=== PATIENT | male | born 1960 | race Caucasian/White ===

== ENCOUNTER 2017-01-20 17:35 | Emergency (ER) | payer SELFPAY ==
[~2017-01-20] VITALS: Ht 175.3 cm; Wt 73.0 kg
[2017-01-20 17:38] VITALS: BP 119/78; PULSE 98; RESP 20; TEMP 98.1; O2SAT 100
[2017-01-20 18:04] VITALS: BP 124/70; PULSE 89; RESP 16; O2SAT 98
[2017-01-20] MEDS ORDERED: SODIUM CHLOR 0.9% 1000 ML INJ 1,000 ML IV SCH (18:04)
[2017-01-20] MEDS ORDERED: MORPHINE SULFATE 8 MG/ML INJ ONE (18:14)
[2017-01-20] MEDS ORDERED: FAMOTIDINE 20 MG/2 ML VIAL IV PUSH ONE (18:15)
[2017-01-20] MEDS ORDERED: PANTOPRAZOLE SODIUM 40 MG VIAL IVP ONE (18:15)
[2017-01-20] MEDS ORDERED: MORPHINE SULFATE 4 MG/ML INJ IV PUSH ONE (18:15)
[2017-01-20] MEDS ORDERED: LIDOCAINE VISCOUS 2% SOLN 15 ML UDC PO ONE (18:15)
[2017-01-20] MEDS ORDERED: ONDANSETRON HCL 4 MG/2 ML VIAL IVP ONE (18:15)
[2017-01-20] MEDS ORDERED: ALUMINUM/MAGNESIUM/SIMETH 30 ML CUP PO ONE (18:15)
[2017-01-20 18:43] LABS: AUTOMATED NEUTROPHIL # 11.5 TH/MM3 (1.8-7.7); BASOPHIL % 0.2 % (0.0-2.0); EOSINOPHIL % 0.3 % (0.0-4.0); HEMATOCRIT 44.1 % (39.0-51.0); LYMPH % 4.2 % (9.0-44.0); LYMPHOCYTE # 0.5 TH/MM3 (1.0-4.8); MEAN CELL VOLUME 91.1 FL (80.0-100.0); MEAN CORPUSCULAR HEMOGLOBIN 32.2 PG (27.0-34.0); MEAN CORPUSCULAR HGB CONC 35.4 % (32.0-36.0); MONO % 6.7 % (0.0-8.0); NEUT % 88.6 % (16.0-70.0); PLATELET COUNT 194 TH/MM3 (150-450); RED BLOOD COUNT 4.84 MIL/MM3 (4.50-5.90); RED CELL DISTRIBUTION WIDTH 13.1 % (11.6-17.2)
[2017-01-20 18:44] LABS: HEMO FLAGS AUTO DIFF
--- NOTE | 2017-01-20 19:03 | PD ---
HPI Chief Complaint: Abdominal Pain Time Seen by Provider: 19:00 Travel History International Travel<30 days: No Contact w/Intl Traveler<30days: No Traveled to known affect area: No History of Present Illness HPI 56-year-old male that presents to the ED for evaluation of epigastric abdominal pain. Per patient she's had this since 10:00 this morning. Per patient yesterday he felt fine. Per patient he did have a couple drinks yesterday. Per patient today he woke up with the pain and he to try to work but he was not able to do so. Per patient he took a Zantac that seemed to help but he continued to have nausea and vomiting as well as abdominal pain. Per patient, multiple times. Per patient he has had no blood. He states that he had diarrhea which was liquidy. Denies any recent travel. No injuries. Denies taking any blood thinners. No history of IV drug abuse. Denies eating anything new or any raw meats. No recent camping trips. Pain per patient is severe and 7 out of 10. Does not radiate. States mainly on the epigastric area on the left upper quadrant [facility] Past Medical History Medical History: Denies Significant Hx Medical other: No (meningitis in 's) Influenza Vaccination: No Past Surgical History Surgical History: No Previous Surgery Social History Alcohol Use: Yes (weekends) Tobacco Use: No Substance Use: No (marijuana) Allergies-Medications (Allergen,Severity, Reaction): Coded Allergies: No Known Allergies (Unverified , 01/20/17) Reported Meds & Prescriptions Reported Meds & Active Scripts Active No Active Prescriptions or Reported Medications Review of Systems Except as stated in HPI: all other systems reviewed are Neg Physical Exam Narrative GENERAL: SKIN: Warm and dry. HEAD: Atraumatic. Normocephalic. EYES: Pupils equal and round. No scleral icterus. No injection or drainage. ENT: No nasal bleeding or discharge. Mucous membranes pink and moist. Tongue is midline. No uvula deviation. NECK: Trachea midline. No JVD. CARDIOVASCULAR: Regular rate and rhythm. No murmurs, S3, S4. RESPIRATORY: No accessory muscle use. Clear to auscultation. Breath sounds equal bilaterally. GASTROINTESTINAL: Abdomen soft, patient has reproducible pain on the left upper quadrant of the abdomen, nondistended. Hepatic and splenic margins not palpable. MUSCULOSKELETAL: Extremities without clubbing, cyanosis, or edema. No obvious deformities. NEUROLOGICAL: Awake and alert. No obvious cranial nerve deficits. Motor grossly within normal limits. Five out of 5 muscle strength in the arms and legs. Normal speech. PSYCHIATRIC: Appropriate mood and affect; insight and judgment normal. Data Data Last Documented VS Vital Signs Date Time Temp Pulse Resp B/P Pulse Ox O2 Delivery O2 Flow Rate FiO2 01/20/17 18:04 89 16 124/70 98 Room Air 01/20/17 17:38 98.1 Orders Complete Blood Count With Diff (01/20/17 18:04) Comprehensive Metabolic Panel (01/20/17 18:04) Lipase (01/20/17 18:04) Lactic Acid (01/20/17 18:04) Iv Access Insert/Monitor (01/20/17 18:04) Morphine Inj (Morphine Inj) (01/20/17 18:15) Ondansetron Inj (Zofran Inj) (01/20/17 18:15) Pantoprazole Inj (Protonix Inj) (01/20/17 18:15) Sodium Chlor 0.9% 1000 Ml Inj (Ns 1000 M (01/20/17 18:04) Famotidine Inj (Pepcid Inj) (01/20/17 18:15) Al-Mag Hy-Si 40-40-4 Mg/Ml Liq (Mag-Al P (01/20/17 18:15) Lidocaine 2% Viscous (Xylocaine 2% Visco (01/20/17 18:15) Morphine Inj (Morphine Inj) (01/20/17 18:14) Labs Laboratory Tests Test 01/20/17 01/20/17 18:26 18:30 White Blood Count 13.0 TH/MM3 Red Blood Count 4.84 MIL/MM3 Hemoglobin 15.6 GM/DL Hematocrit 44.1 % Mean Corpuscular Volume 91.1 FL Mean Corpuscular Hemoglobin 32.2 PG Mean Corpuscular Hemoglobin 35.4 % Concent Red Cell Distribution Width 13.1 % Platelet Count 194 TH/MM3 Mean Platelet Volume 9.7 FL Neutrophils (%) (Auto) 88.6 % Lymphocytes (%) (Auto) 4.2 % Monocytes (%) (Auto) 6.7 % Eosinophils (%) (Auto) 0.3 % Basophils (%) (Auto) 0.2 % Neutrophils # (Auto) 11.5 TH/MM3 Lymphocytes # (Auto) 0.5 TH/MM3 Monocytes # (Auto) 0.9 TH/MM3 Eosinophils # (Auto) 0.0 TH/MM3 Basophils # (Auto) 0.0 TH/MM3 CBC Comment AUTO DIFF Sodium Level 139 MEQ/L Potassium Level 3.7 MEQ/L Chloride Level 109 MEQ/L Carbon Dioxide Level 21.0 MEQ/L Anion Gap 9 MEQ/L Blood Urea Nitrogen 22 MG/DL Creatinine 1.03 MG/DL Estimat Glomerular Filtration 74 ML/MIN Rate Random Glucose 101 MG/DL Calcium Level 9.4 MG/DL Total Bilirubin 1.5 MG/DL Aspartate Amino Transf 22 U/L (AST/SGOT) Alanine Aminotransferase 27 U/L (ALT/SGPT) Alkaline Phosphatase 60 U/L Total Protein 7.9 GM/DL Albumin 4.6 GM/DL Lipase 107 U/L Lactic Acid Level 1.3 mmol/L MDM Medical Decision Making Medical Screen Exam Complete: Yes Emergency Medical Condition: Yes Medical Record Reviewed: Yes Interpretation(s) CBC Diagram 01/20/17 18:26 BMP Diagram 01/20/17 18:26 LFTS WNL Lipase WNL lactic acid WNL Differential Diagnosis Abdominal pain versus gastritis versus pancreatitis versus cholelithiasis versus acute abdomen Narrative Course 56-year-old male that presents to the ED for evaluation of epigastric abdominal pain. Patient was properly examined and was found to have signs and symptoms consistent appears to be possible pericarditis. Labs were ordered. Patient was started on IV pain medication and fluids. Labs and imaging showed no sign of acute disease. For the most part this is does not appear to be pancreatitis. My attending Dr. Bahena evaluated the patient and agrees with plan. Patient likely has gastritis likely secondary to alcohol abuse. At this time we'll treat with Protonix and ranitidine. Patient agrees with this plan. Patient feels relieved after medications given here. Patient was told to drink any fluids. Avoid alcohol. See ED worsening symptoms. Follow with PCP. Diagnosis Primary Impression: Gastritis Qualified Code: K29.20 - Acute alcoholic gastritis without hemorrhage Patient Instructions: General Instructions Additional Instructions: Take medications as prescribed. Follow with PCP. You can take Pepto-Bismol as well for the discomfort. No alcohol or fast food or fatty foods for the next couple days until completely back to normal. See ED for any worsening symptoms. Med/Other Pt SpecificInfo: Prescription(s) given Scripts Ranitidine 150 Mg [id number] Mg PO BID PRN (PAIN SCALE 1 TO 10) #20 TAB Ref 0 Prov:Savi Black MD 01/20/17 Pantoprazole (Protonix)20 Mg Tab20 Mg PO DAILY #30 TAB Ref 0 Prov:Savi Black MD 01/20/17 Disposition: 01 DISCHARGE HOME Condition: Stable Marv Russell Jan 20, 2017 19:03
[2017-01-20 19:08] LABS: ALT (GPT) 27 U/L (12-78); ANION GAP 9 MEQ/L (5-15); AST (GOT) 22 U/L (15-37); BLOOD UREA NITROGEN 22 MG/DL (7-18); CHLORIDE 109 MEQ/L (98-107); GLOMERULAR FILTRATION RATE 74 ML/MIN (>89); POTASSIUM 3.7 MEQ/L (3.5-5.1); SODIUM (NA) 139 MEQ/L (136-145)
[2017-01-20 19:11] LABS: ALKALINE PHOSPHATASE 60 U/L (45-117); TOTAL BILIRUBIN ADULT 1.5 MG/DL (0.2-1.0)
[2017-01-20] MEDS ORDERED: PANT20 PO (19:26)
[2017-01-20] MEDS ORDERED: RANI150T PO (19:26)
--- NOTE | 2017-01-20 19:26 | PD ---
Data Data Last Documented VS Vital Signs Date Time Temp Pulse Resp B/P Pulse Ox O2 Delivery O2 Flow Rate FiO2 01/20/17 18:04 89 16 124/70 98 Room Air 01/20/17 17:38 98.1 Orders Complete Blood Count With Diff (01/20/17 18:04) Comprehensive Metabolic Panel (01/20/17 18:04) Lipase (01/20/17 18:04) Lactic Acid (01/20/17 18:04) Iv Access Insert/Monitor (01/20/17 18:04) Morphine Inj (Morphine Inj) (01/20/17 18:15) Ondansetron Inj (Zofran Inj) (01/20/17 18:15) Pantoprazole Inj (Protonix Inj) (01/20/17 18:15) Sodium Chlor 0.9% 1000 Ml Inj (Ns 1000 M (01/20/17 18:04) Famotidine Inj (Pepcid Inj) (01/20/17 18:15) Al-Mag Hy-Si 40-40-4 Mg/Ml Liq (Mag-Al P (01/20/17 18:15) Lidocaine 2% Viscous (Xylocaine 2% Visco (01/20/17 18:15) Morphine Inj (Morphine Inj) (01/20/17 18:14) Labs Laboratory Tests Test 01/20/17 01/20/17 18:26 18:30 White Blood Count 13.0 TH/MM3 Red Blood Count 4.84 MIL/MM3 Hemoglobin 15.6 GM/DL Hematocrit 44.1 % Mean Corpuscular Volume 91.1 FL Mean Corpuscular Hemoglobin 32.2 PG Mean Corpuscular Hemoglobin 35.4 % Concent Red Cell Distribution Width 13.1 % Platelet Count 194 TH/MM3 Mean Platelet Volume 9.7 FL Neutrophils (%) (Auto) 88.6 % Lymphocytes (%) (Auto) 4.2 % Monocytes (%) (Auto) 6.7 % Eosinophils (%) (Auto) 0.3 % Basophils (%) (Auto) 0.2 % Neutrophils # (Auto) 11.5 TH/MM3 Lymphocytes # (Auto) 0.5 TH/MM3 Monocytes # (Auto) 0.9 TH/MM3 Eosinophils # (Auto) 0.0 TH/MM3 Basophils # (Auto) 0.0 TH/MM3 CBC Comment AUTO DIFF Sodium Level 139 MEQ/L Potassium Level 3.7 MEQ/L Chloride Level 109 MEQ/L Carbon Dioxide Level 21.0 MEQ/L Anion Gap 9 MEQ/L Blood Urea Nitrogen 22 MG/DL Creatinine 1.03 MG/DL Estimat Glomerular Filtration 74 ML/MIN Rate Random Glucose 101 MG/DL Calcium Level 9.4 MG/DL Total Bilirubin 1.5 MG/DL Aspartate Amino Transf 22 U/L (AST/SGOT) Alanine Aminotransferase 27 U/L (ALT/SGPT) Alkaline Phosphatase 60 U/L Total Protein 7.9 GM/DL Albumin 4.6 GM/DL Lipase 107 U/L Lactic Acid Level 1.3 mmol/L MDM Supervised Visit with ARIELLE: Yes Narrative Course I, Dr. Blcak, have reviewed the advance practice practioner's documentation and am in agreement, met with the patient face to face, made the diagnosis, and the medical decision making was done by me. *My assessment and Findings: 56-year-old male here with complaint of epigastric abdominal pain since approximately 10 AM. Admits to having a couple of alcoholic beverages yesterday, though that is not necessarily atypical for him. He woke up this morning with pain. Took a Zantac that seemed to help somewhat but the pain has persisted prompting ED visit. Patient has minimal reproducible epigastric abdominal tenderness to palpation on exam but overall his abdominal examination is benign. Suspect alcoholic gastritis, gastritis versus pancreatitis, hepatobiliary pathology. Patient's laboratory workup was unremarkable other than very mild leukocytosis. Patient reassured and will be started on PPI for home. Patient agreeable with plan. Scripts No Active Prescriptions or Reported Meds Savi Black MD Jan 20, 2017 19:26
[2017-01-20] MEDS ORDERED: ZOFR4TAB PO (19:30)
[2017-01-20 20:56] LABS: PLATELET ESTIMATE SMEAR NORMAL (NORMAL); PLATELET MORPHOLOGY NORMAL (NORMAL); SCAN/DIFF AUTO DIFF CONFIRMED
== END 2017-01-20 20:02 | disposition home or self-care (01) ==
LOC: NEPE 17:35
DX: K29.20 Alcoholic gastritis without bleeding (principal); D72.829 Elevated white blood cell count, unspecified
CPT/HCPCS: 80053; 83605; 83690; 85025; 96361; 96374; 96375; 99284; C9113; J2270; J2405; J7030